=== PATIENT | male | born 1970 | race Two or more races ===

== ENCOUNTER → 2018-03-27 | Outpatient (CLI) | payer MEDICARE | END | disposition home or self-care (01) | LOC: CVU 12:38 | PROVIDERS: ATTEND Internal Medicine Cardiovascular Disease | DX: I08.0 Rheumatic disorders of both mitral and aortic valves (principal); E11.9 Type 2 diabetes mellitus without complications; I25.10 Atherosclerotic heart disease of native coronary artery without angina pectoris; E78.5 Hyperlipidemia, unspecified; M25.871 Other specified joint disorders, right ankle and foot; M25.872 Other specified joint disorders, left ankle and foot; F17.200 Nicotine dependence, unspecified, uncomplicated | CPT/HCPCS: 93306; 93922 ==

== ENCOUNTER → 2019-04-19 | Outpatient (CLI) | payer MEDICARE | END | disposition home or self-care (01) | LOC: CVU 14:54 | PROVIDERS: ATTEND Internal Medicine Cardiovascular Disease | DX: I65.23 Occlusion and stenosis of bilateral carotid arteries (principal); I25.10 Atherosclerotic heart disease of native coronary artery without angina pectoris; E78.5 Hyperlipidemia, unspecified; E11.9 Type 2 diabetes mellitus without complications; F17.200 Nicotine dependence, unspecified, uncomplicated | CPT/HCPCS: 93880 ==

== ENCOUNTER 2019-05-21 07:07 | Outpatient (CLI) | payer MEDICARE | END 2019-05-21 23:59 | disposition home or self-care (01) | LOC: CVU 07:07 → CFH 23:59 | PROVIDERS: ATTEND Nurse Practitioner Family | DX: I08.2 Rheumatic disorders of both aortic and tricuspid valves (principal); I25.89 Other forms of chronic ischemic heart disease; I25.10 Atherosclerotic heart disease of native coronary artery without angina pectoris; E11.9 Type 2 diabetes mellitus without complications; F17.200 Nicotine dependence, unspecified, uncomplicated | CPT/HCPCS: 78452; 93017; 93306; A9502; J2785 ==

== ENCOUNTER 2021-06-02 09:32 | Inpatient (IN) | payer MEDICARE ==
[~2021-06-02] VITALS: Ht 185.4 cm; Wt 89.5 kg
[2021-06-02] MEDS ORDERED: SODIUM CHLORIDE 0.9% 1,000ML IVBOLUS ONE (10:30)
[2021-06-02 10:41] LABS: BASOPHILS % (AUTO) 0 % (0-1); EOSINOPHILS % (AUTO) 0 % (1-7); LYMPHOCYTES % (AUTO) 27 % (22-44); MEAN CORPUSCULAR HEMOGLOBIN 29.8 pg (27.5-34.5); MEAN CORPUSCULAR HGB CONC 34.6 g/dL (33.2-36.2); MONOCYTES % (AUTO) 18 % (2-9); NEUTROPHILS % (AUTO) 55 % (42-75); PLATELET COUNT 112 x10^3/uL (130-400); RED BLOOD COUNT 4.88 x10^6/uL (4.38-5.82); RED CELL DISTRIBUTION WIDTH 13.7 % (9.4-14.8)
[2021-06-02 10:51] LABS: ALANINE AMINOTRANSFERASE 31 U/L (12-78); ALBUMIN 3.5 g/dL (3.4-5.0); ANION GAP 14 mmol/L (5-15); CALCIUM 8.6 mg/dL (8.5-10.1); CHLORIDE 104 mmol/L (98-107); CREATININE 2.12 mg/dL (0.7-1.3)
[2021-06-02 10:53] LABS: ALKALINE PHOSPHATASE 41 U/L (45-117); TOTAL PROTEIN 7.1 g/dL (6.4-8.2)
--- NOTE | 2021-06-02 10:53 | NUR ---
P STATES TO THIS RN HE FEELS LIKE HIS THROAT IS BURNING AND HE CAN'T CATCH HIS BREATH. MD MADE AWARE. LUNG SOUND REASSESSED AND ARE FOUND CLEAR. O2 SAT at 100% room air
[2021-06-02] MEDS ORDERED: LACTATED RINGERS 1,000 ML IVBOLUS ONE (11:00)
--- NOTE | 2021-06-02 11:41 | NUR ---
per admitting hold paul
[2021-06-02] MEDS ORDERED: ACETAMINOPHEN 325 MG TABLET PO PRN (12:00)
[2021-06-02] MEDS ORDERED: DEXTROSE 4 GM TAB.CHEW PO PRN (12:00)
[2021-06-02] MEDS ORDERED: THIAMINE 100MG TABLET PO ONE (12:00)
[2021-06-02] MEDS ORDERED: PROMETHAZINE 25 MG/ML, 1ML IM PRN (12:00)
[2021-06-02] MEDS ORDERED: CEFTRIAXONE 1,000 MG in DEXTROSE 5% 50 ML IVPB ONE (12:00)
[2021-06-02] MEDS ORDERED: DOCUSATE 100 MG CAPSULE PO PRN (12:00)
[2021-06-02] MEDS ORDERED: HYDROcodone/APAP 5/325 TABLET PO PRN (12:00)
[2021-06-02] MEDS ORDERED: VANCOMYCIN 2,100 MG in SODIUM CHLORIDE 0.9% 500 ML IV ONE (12:00)
[2021-06-02] MEDS ORDERED: GLUCAGON 1 MG IM PRN (12:00)
[2021-06-02] MEDS ORDERED: VANCOMYCIN PER PHARMACY MC ONE (12:00)
[2021-06-02] MEDS ORDERED: ENALAPRILAT 1.25 MG/ML, 2ML IVPush PRN (12:00)
[2021-06-02] MEDS ORDERED: GABAPENTIN 300 MG CAPSULE PO PRN (12:00)
[2021-06-02] MEDS ORDERED: DEXTROSE 50%, 50ML SYRINGE IVPush PRN (12:00)
[2021-06-02] MEDS ORDERED: ONDANSETRON ODT 4 MG PO PRN (12:00)
[2021-06-02] MEDS: CHOLECALCIFEROL 1,000 UNIT TABLET PO SCH (12:00)
[2021-06-02] MEDS ORDERED: METHOCARBAMOL 500 MG TABLET PO PRN (12:00)
[2021-06-02] MEDS ORDERED: morphine SULFATE 10 MG/ML, 1ML IVPush PRN (12:00)
[2021-06-02] MEDS ORDERED: ONDANSETRON 2MG/ML, 2ML IVPush PRN (12:00)
[2021-06-02] MEDS ORDERED: DOXEPIN 10 MG CAPSULE PO PRN (12:30)
[2021-06-02] MEDS ORDERED: CALCIUM CARBONATE 500 MG TAB.CHEW PO PRN (12:30)
[2021-06-02 12:42] VITALS: BP 164/114
[2021-06-02] MEDS: AZITHROMYCIN 500 MG in SODIUM CHLORIDE 0.9% 250 ML IV SCH (13:40)
[2021-06-02] MEDS: HEPARIN 5,000 UNITS/ML, 1ML SQ SCH ×2 (13:40→22:09)
[2021-06-02] MEDS: DEXAMETHASONE 4 MG/ML, 1ML IVPush SCH (14:06)
[2021-06-02] MEDS: INSULIN LISPRO 100 UNITS/ML, PEN SQ-INSULIN SCH ×2 (16:00→22:10)
[2021-06-02] MEDS: GABAPENTIN 300 MG CAPSULE PO SCH ×2 (17:24→22:11)
[2021-06-02] MEDS: GlyBURIDE 5 MG TABLET PO SCH (17:24)
[2021-06-02] MEDS: METOPROLOL TARTRATE 25 MG TAB PO SCH (17:24)
[2021-06-02] MEDS: ASCORBIC ACID 500 MG TABLET PO SCH (17:25)
[2021-06-02 17:58] LABS: MICROSCOPIC NOT IND
[2021-06-02 18:57] VITALS: BP 169/101
[2021-06-02 19:20] VITALS: BP 144/101
[2021-06-02 22:08] VITALS: BP 167/76
[2021-06-02] MEDS: INSULIN GLARGINE 100 UNITS/ML, PEN SQ-INSULIN SCH (22:10)
[2021-06-02] MEDS: mycophenOLATE SODIUM 360MG DR PO SCH (22:10)
[2021-06-02] MEDS: ATORVASTATIN 40 MG TABLET PO SCH (22:11)
[2021-06-02] MEDS: TACROLIMUS 1 MG CAPSULE PO SCH (22:11)
[2021-06-02] MEDS: OMEGA-3/FISH OIL CAPSULE PO SCH (22:11)
[2021-06-02] MEDS: SODIUM CHLORIDE FLUSH 10ML SYR IVF SCH (22:15)
[2021-06-03 01:00] VITALS: BP 159/88
[2021-06-03] MEDS: TEMAZEPAM 15 MG CAPSULE PO PRN (01:21)
[2021-06-03 06:13] VITALS: BP 166/113
[2021-06-03] MEDS: ASPIRIN 81 MG TABLET EC PO SCH (06:15)
[2021-06-03] MEDS: HEPARIN 5,000 UNITS/ML, 1ML SQ SCH ×3 (06:15→21:19)
[2021-06-03] MEDS: METOPROLOL TARTRATE 25 MG TAB PO SCH ×2 (06:15→17:22)
[2021-06-03 06:39] LABS: ANION GAP 9 mmol/L (5-15); CHLORIDE 110 mmol/L (98-107); CREATININE 1.65 mg/dL (0.7-1.3)
[2021-06-03] MEDS: INSULIN LISPRO 100 UNITS/ML, PEN SQ-INSULIN SCH ×5 (07:00→21:18)
[2021-06-03 07:46] LABS: MEAN CORPUSCULAR HEMOGLOBIN 29.3 pg (27.5-34.5); MEAN CORPUSCULAR HGB CONC 34.1 g/dL (33.2-36.2); PLATELET COUNT 126 x10^3/uL (130-400); RED BLOOD COUNT 4.43 x10^6/uL (4.38-5.82); RED CELL DISTRIBUTION WIDTH 13.6 % (9.4-14.8)
[2021-06-03] MEDS: OMEGA-3/FISH OIL CAPSULE PO SCH ×2 (08:02→21:19)
[2021-06-03] MEDS: GlyBURIDE 5 MG TABLET PO SCH ×2 (08:02→16:22)
[2021-06-03] MEDS: GABAPENTIN 300 MG CAPSULE PO SCH ×3 (08:02→21:21)
[2021-06-03] MEDS: ZINC SULFATE 220 MG CAPSULE PO SCH (08:03)
[2021-06-03] MEDS: ASCORBIC ACID 500 MG TABLET PO SCH ×2 (08:03→16:22)
[2021-06-03] MEDS: TACROLIMUS 1 MG CAPSULE PO SCH ×2 (08:03→21:19)
[2021-06-03] MEDS: mycophenOLATE SODIUM 360MG DR PO SCH ×2 (08:03→21:19)
[2021-06-03] MEDS: CLOPIDOGREL 75 MG TABLET PO SCH (08:03)
[2021-06-03] MEDS: FENOFIBRATE 145 MG TABLET PO SCH (08:03)
[2021-06-03] MEDS: LISINOPRIL 20 MG TABLET PO SCH (08:04)
[2021-06-03] MEDS: DEXAMETHASONE 4 MG/ML, 1ML IVPush SCH (08:04)
[2021-06-03] MEDS: SODIUM CHLORIDE FLUSH 10ML SYR IVF SCH ×2 (08:05→21:22)
[2021-06-03] MEDS: CHOLECALCIFEROL 1,000 UNIT TABLET PO SCH (08:05)
[2021-06-03 08:26] LABS: SEG#(MANUAL) 0.65 x10^3/uL (1.8-6.8); SEGS% (MANUAL) 43 % (42-75)
[2021-06-03 08:28] LABS: BAND#(MANUAL) 0.02 x10^3/uL; BANDS%(MANUAL) 1 % (0-7); LYMPH#(MANUAL) 0.51 x10^3/uL (1-3.4); LYMPHS% (MANUAL) 34 % (22-44); MONOS#(MANUAL) 0.33 x10^3/uL (0.3-2.7); MONOS% (MANUAL) 22 % (2-9)
[2021-06-03 08:29] LABS: <PLATELET ESTIMATE> DECREASED; <PLT MORPHOLOGY> NORMAL PLT MORPH; <RBC MORPHOLOGY> NORMAL
[2021-06-03 08:44] VITALS: BP 145/104
[2021-06-03] MEDS: LABETALOL 5MG/ML, 20ML IVPush PRN (09:51)
[2021-06-03] MEDS: CEFTRIAXONE 1,000 MG in DEXTROSE 5% 50 ML IVPB SCH (12:25)
[2021-06-03 12:28] VITALS: BP 151/97
[2021-06-03] MEDS: AZITHROMYCIN 500 MG in SODIUM CHLORIDE 0.9% 250 ML IV SCH (13:21)
[2021-06-03 17:22] VITALS: BP 138/81
[2021-06-03 19:37] VITALS: BP 156/96
[2021-06-03] MEDS: INSULIN GLARGINE 100 UNITS/ML, PEN SQ-INSULIN SCH (21:18)
[2021-06-03] MEDS: ATORVASTATIN 40 MG TABLET PO SCH (21:19)
[2021-06-04 00:33] VITALS: BP 159/95
[2021-06-04] MEDS: TEMAZEPAM 15 MG CAPSULE PO PRN (00:35)
[2021-06-04 05:21] VITALS: BP 166/117
[2021-06-04] MEDS: METOPROLOL TARTRATE 25 MG TAB PO SCH (05:24)
[2021-06-04] MEDS: ASPIRIN 81 MG TABLET EC PO SCH (05:24)
[2021-06-04] MEDS: HEPARIN 5,000 UNITS/ML, 1ML SQ SCH ×2 (05:24→14:18)
[2021-06-04 07:36] VITALS: BP 159/114
[2021-06-04 09:03] VITALS: BP 156/96
[2021-06-04] MEDS: INSULIN LISPRO 100 UNITS/ML, PEN SQ-INSULIN SCH ×2 (09:27→12:17)
[2021-06-04] MEDS: CLOPIDOGREL 75 MG TABLET PO SCH (10:13)
[2021-06-04] MEDS: CHOLECALCIFEROL 1,000 UNIT TABLET PO SCH (10:13)
[2021-06-04] MEDS: LISINOPRIL 20 MG TABLET PO SCH (10:13)
[2021-06-04] MEDS: mycophenOLATE SODIUM 360MG DR PO SCH (10:13)
[2021-06-04] MEDS: OMEGA-3/FISH OIL CAPSULE PO SCH (10:13)
[2021-06-04] MEDS: TACROLIMUS 1 MG CAPSULE PO SCH (10:14)
[2021-06-04] MEDS: ASCORBIC ACID 500 MG TABLET PO SCH (10:14)
[2021-06-04] MEDS: ZINC SULFATE 220 MG CAPSULE PO SCH (10:14)
[2021-06-04] MEDS: GABAPENTIN 300 MG CAPSULE PO SCH (10:14)
[2021-06-04] MEDS: FENOFIBRATE 145 MG TABLET PO SCH (10:14)
[2021-06-04] MEDS: SODIUM CHLORIDE FLUSH 10ML SYR IVF SCH (10:15)
[2021-06-04] MEDS: DEXAMETHASONE 4 MG/ML, 1ML IVPush SCH (10:15)
[2021-06-04] MEDS: GlyBURIDE 5 MG TABLET PO SCH (10:37)
[2021-06-04] MEDS ORDERED: INSU100I11 SQ-INSULIN (12:11)
[2021-06-04] MEDS ORDERED: OMEG1CAP6 PO (12:11)
[2021-06-04] MEDS ORDERED: CHOL10003 PO ×2 (12:11)
[2021-06-04] MEDS: CEFTRIAXONE 1,000 MG in DEXTROSE 5% 50 ML IVPB SCH (12:11)
[2021-06-04] MEDS ORDERED: INSU100I13 SQ-INSULIN (12:11)
[2021-06-04] MEDS ORDERED: AZIT250T PO ×2 (12:11)
[2021-06-04] MEDS ORDERED: CALC200T24 PO (12:11)
[2021-06-04] MEDS ORDERED: LISI-170 PO (12:11)
[2021-06-04] MEDS ORDERED: FENO145T19 PO (12:11)
[2021-06-04] MEDS ORDERED: ASPI81TA45 PO (12:11)
[2021-06-04] MEDS ORDERED: CLOP75TA PO (12:11)
[2021-06-04] MEDS ORDERED: GABA300C PO (12:11)
[2021-06-04] MEDS ORDERED: ZINC220C8 PO (12:11)
[2021-06-04] MEDS ORDERED: ATOR40TA78 PO (12:11)
[2021-06-04] MEDS ORDERED: ASCO500T9 PO ×2 (12:11)
[2021-06-04] MEDS ORDERED: GLYB5TAB3 PO ×2 (12:11)
[2021-06-04] MEDS ORDERED: DOXE10CA PO (12:11)
[2021-06-04] MEDS ORDERED: MYCO360T PO (12:11)
[2021-06-04] MEDS ORDERED: CEFD300C37 PO (12:11)
[2021-06-04] MEDS ORDERED: METO25TA35 PO (12:11)
[2021-06-04] MEDS ORDERED: TACR1CAP5 PO (12:11)
[2021-06-04] MEDS: AZITHROMYCIN 500 MG in SODIUM CHLORIDE 0.9% 250 ML IV SCH (12:17)
[2021-06-04 14:27] VITALS: BP 181/132
[2021-06-04] MEDS: LABETALOL 5MG/ML, 20ML IVPush PRN (14:40)
== END 2021-06-04 15:10 | disposition home or self-care (01) | DRG 871 ==
LOC: SUATTDRO 11:22 → ED 11:52 → 3N 12:22
PROVIDERS: ADMIT Hospitalist; ATTEND Family Medicine
DX: A41.9 Sepsis, unspecified organism (principal); U07.1 COVID-19; J12.82 Pneumonia due to coronavirus disease 2019; N17.0 Acute kidney failure with tubular necrosis; T86.19 Other complication of kidney transplant; E11.22 Type 2 diabetes mellitus with diabetic chronic kidney disease; E11.42 Type 2 diabetes mellitus with diabetic polyneuropathy; H91.90 Unspecified hearing loss, unspecified ear; I12.9 Hypertensive chronic kidney disease with stage 1 through stage 4 chronic kidney disease, or unspecified chronic kidney disease; I25.10 Atherosclerotic heart disease of native coronary artery without angina pectoris; K52.9 Noninfective gastroenteritis and colitis, unspecified; N18.30 Chronic kidney disease, stage 3 unspecified; Y83.0 Surgical operation with transplant of whole organ as the cause of abnormal reaction of the patient, or of later complication, without mention of misadventure at the time of the procedure; Z79.4 Long term (current) use of insulin; Z79.82 Long term (current) use of aspirin; Z79.02 Long term (current) use of antithrombotics/antiplatelets; Z79.899 Other long term (current) drug therapy; Z95.5 Presence of coronary angioplasty implant and graft; Y83.8 Other surgical procedures as the cause of abnormal reaction of the patient, or of later complication, without mention of misadventure at the time of the procedure
CPT/HCPCS: 36415; 71045; 80048; 80053; 81003; 82962; 83605; 84145; 85025; 87040; 93005; 96361; 96374; 96375; G0378; J0456; J0696; J1100; J1644; J2405; J7507; J7518; J1815; J7030; J7050; J7120

== ENCOUNTER 2021-06-06 15:36 | Inpatient (IN) | payer MEDICARE ==
[~2021-06-06] VITALS: Ht 185.4 cm; Wt 86.5 kg
[~2021-06-06 15:36] MED LIST: ASCO500T9 PO; ASPI81TA45 PO; ATOR40TA78 PO; AZIT250T PO; CALC200T24 PO; CEFD300C37 PO; CHOL10003 PO; CLOP75TA PO; DOXE10CA PO; FENO145T19 PO; GABA300C PO; GLYB5TAB3 PO; INSU100I11 SQ-INSULIN; INSU100I13 SQ-INSULIN; LISI-170 PO; METO25TA35 PO; MYCO360T PO; OMEG1CAP6 PO; TACR1CAP5 PO; ZINC220C8 PO
--- NOTE | 2021-06-06 16:23 | NUR ---
[employer]: EKG COMPLETED IN TRIAGE.
[2021-06-06 16:54] LABS: BASOPHILS % (AUTO) 0 % (0-1); EOSINOPHILS % (AUTO) 0 % (1-7); LYMPHOCYTES % (AUTO) 11 % (22-44); MEAN CORPUSCULAR HEMOGLOBIN 29.7 pg (27.5-34.5); MEAN CORPUSCULAR HGB CONC 34.4 g/dL (33.2-36.2); MEAN PLATELET VOLUME 9.4 fL (7.4-10.4); MONOCYTES % (AUTO) 13 % (2-9); NEUTROPHILS % (AUTO) 75 % (42-75); PLATELET COUNT 170 x10^3/uL (130-400); RED BLOOD COUNT 4.73 x10^6/uL (4.38-5.82); RED CELL DISTRIBUTION WIDTH 13.9 % (9.4-14.8)
[2021-06-06 17:06] LABS: ALBUMIN 2.9 g/dL (3.4-5.0); ANION GAP 8 mmol/L (5-15); CALCIUM 8.7 mg/dL (8.5-10.1); CHLORIDE 104 mmol/L (98-107)
[2021-06-06 17:09] LABS: ALANINE AMINOTRANSFERASE 49 U/L (12-78); ALKALINE PHOSPHATASE 41 U/L (45-117); BILIRUBIN,TOTAL 0.8 mg/dL (0.2-1.0); CREATININE 1.29 mg/dL (0.7-1.3); TOTAL PROTEIN 7.1 g/dL (6.4-8.2)
--- NOTE | 2021-06-06 18:11 | NUR ---
VSS. patient assisted to bedside commode. call light within reach
[2021-06-06] MEDS ORDERED: SODIUM CHLORIDE FLUSH 10ML SYR IVF PRN (18:30)
[2021-06-06] MEDS ORDERED: OXYcodone IR 5MG TABLET PO PRN (19:00)
[2021-06-06] MEDS ORDERED: PHARMACY MAY ADJ FOR RENAL FX MC PRN (19:00)
[2021-06-06] MEDS ORDERED: ONDANSETRON 2MG/ML, 2ML IVPush PRN (19:00)
[2021-06-06] MEDS ORDERED: ENOXAPARIN 40 MG/0.4 ML SQ SCH (20:00)
[2021-06-06 21:31] VITALS: BP 170/119
[2021-06-06] MEDS: MELATONIN 5 MG TABLET PO PRN (21:56)
[2021-06-06] MEDS: ACETAMINOPHEN 325 MG TABLET PO PRN (21:56)
[2021-06-06] MEDS: PIPERACILLIN/TAZO 3.375 GM in DEXTROSE 5% 50 ML IVPB SCH (21:56)
[2021-06-07] VITALS (7 sets, daily range): BP systolic 126–171; BP diastolic 79–125
[2021-06-07] MEDS: PIPERACILLIN/TAZO 3.375 GM in DEXTROSE 5% 50 ML IVPB SCH ×4 (04:13→22:52)
[2021-06-07] MEDS: METOPROLOL TARTRATE 25 MG TAB PO SCH ×2 (06:46→17:05)
[2021-06-07] MEDS: ASPIRIN 81 MG TABLET EC PO SCH (06:46)
[2021-06-07 06:51] LABS: BASOPHILS % (AUTO) 0 % (0-1); EOSINOPHILS % (AUTO) 0 % (1-7); LYMPHOCYTES % (AUTO) 17 % (22-44); MEAN CORPUSCULAR HEMOGLOBIN 29.8 pg (27.5-34.5); MEAN CORPUSCULAR HGB CONC 34.9 g/dL (33.2-36.2); MEAN PLATELET VOLUME 9.2 fL (7.4-10.4); MONOCYTES % (AUTO) 17 % (2-9); NEUTROPHILS % (AUTO) 66 % (42-75); PLATELET COUNT 160 x10^3/uL (130-400); RED BLOOD COUNT 4.45 x10^6/uL (4.38-5.82); RED CELL DISTRIBUTION WIDTH 13.6 % (9.4-14.8)
[2021-06-07 06:57] LABS: ANION GAP 8 mmol/L (5-15); CALCIUM 8.3 mg/dL (8.5-10.1); CHLORIDE 105 mmol/L (98-107); CREATININE 1.25 mg/dL (0.7-1.3)
[2021-06-07] MEDS: INSULIN LISPRO 100 UNITS/ML, PEN SQ-INSULIN SCH ×4 (07:00→21:00)
[2021-06-07 07:33] LABS: C-REACTIVE PROTEIN, QUANT 9.4 mg/dL (0.02-0.49)
[2021-06-07] MEDS ORDERED: DEXTROSE 4 GM TAB.CHEW PO PRN (08:30)
[2021-06-07] MEDS ORDERED: DEXTROSE 50%, 50ML SYRINGE IVPush PRN (08:30)
[2021-06-07] MEDS ORDERED: GLUCAGON 1 MG IM PRN (08:30)
[2021-06-07] MEDS: SODIUM CHLORIDE FLUSH 10ML SYR IVF SCH ×2 (08:58→20:34)
[2021-06-07] MEDS: ASCORBIC ACID 500 MG TABLET PO SCH ×2 (08:58→17:04)
[2021-06-07] MEDS: ZINC SULFATE 220 MG CAPSULE PO SCH (08:58)
[2021-06-07] MEDS: GABAPENTIN 300 MG CAPSULE PO SCH ×3 (08:58→20:33)
[2021-06-07] MEDS: THIAMINE 100MG TABLET PO SCH (08:59)
[2021-06-07] MEDS: CLOPIDOGREL 75 MG TABLET PO SCH (08:59)
[2021-06-07] MEDS: TACROLIMUS 1 MG CAPSULE PO SCH (08:59)
[2021-06-07] MEDS: CHOLECALCIFEROL 1,000 UNIT TABLET PO SCH (08:59)
[2021-06-07] MEDS: FENOFIBRATE 145 MG TABLET PO SCH (08:59)
[2021-06-07] MEDS ORDERED: LISINOPRIL 20 MG TABLET PO SCH (09:00)
[2021-06-07] MEDS: DEXAMETHASONE 4 MG/ML, 1ML IVPush SCH (10:29)
[2021-06-07] MEDS: mycophenOLATE SODIUM 360MG DR PO SCH ×2 (10:47→20:33)
[2021-06-07 11:47] LABS: MICROSCOPIC AUTO
[2021-06-07 12:30] LABS: CLOSTRIDIUM DIFFICILE ANTIGEN NEGATIVE; CLOSTRIDIUM DIFFICILE TOXIN NEGATIVE (Negative)
[2021-06-07] MEDS: ENOXAPARIN 60 MG/0.6 ML SQ SCH (20:32)
[2021-06-07] MEDS: ATORVASTATIN 40 MG TABLET PO SCH (20:33)
[2021-06-07] MEDS: LISINOPRIL 20 MG TABLET PO SCH (20:33)
[2021-06-07] MEDS: ACETAMINOPHEN 325 MG TABLET PO PRN (21:00)
[2021-06-07] MEDS: MELATONIN 5 MG TABLET PO PRN (21:00)
[2021-06-08] MEDS: PIPERACILLIN/TAZO 3.375 GM in DEXTROSE 5% 50 ML IVPB SCH ×4 (04:40→21:35)
[2021-06-08] MEDS: METOPROLOL TARTRATE 25 MG TAB PO SCH ×2 (06:33→17:01)
[2021-06-08] MEDS: ASPIRIN 81 MG TABLET EC PO SCH (06:33)
[2021-06-08 06:45] LABS: BASOPHILS % (AUTO) 0 % (0-1); EOSINOPHILS % (AUTO) 0 % (1-7); LYMPHOCYTES % (AUTO) 24 % (22-44); MEAN CORPUSCULAR HEMOGLOBIN 29.4 pg (27.5-34.5); MEAN CORPUSCULAR HGB CONC 34.5 g/dL (33.2-36.2); MEAN PLATELET VOLUME 9.8 fL (7.4-10.4); MONOCYTES % (AUTO) 22 % (2-9); NEUTROPHILS % (AUTO) 54 % (42-75); PLATELET COUNT 196 x10^3/uL (130-400); RED CELL DISTRIBUTION WIDTH 13.8 % (9.4-14.8)
[2021-06-08 06:56] LABS: ANION GAP 9 mmol/L (5-15); CALCIUM 8.4 mg/dL (8.5-10.1); CHLORIDE 105 mmol/L (98-107)
[2021-06-08 06:58] LABS: CREATININE 1.54 mg/dL (0.7-1.3)
[2021-06-08] MEDS ORDERED: SODIUM CHLORIDE 0.9% 1,000ML IVBOLUS ONE (07:30)
[2021-06-08] MEDS ORDERED: INSULIN GLARGINE 100 UNITS/ML, PEN SQ-INSULIN SCH (09:00)
[2021-06-08] MEDS: CHOLECALCIFEROL 1,000 UNIT TABLET PO SCH (09:00)
[2021-06-08 09:58] VITALS: BP 106/67
[2021-06-08] MEDS: THIAMINE 100MG TABLET PO SCH (10:02)
[2021-06-08] MEDS: mycophenOLATE SODIUM 360MG DR PO SCH (10:02)
[2021-06-08] MEDS: ZINC SULFATE 220 MG CAPSULE PO SCH (10:02)
[2021-06-08] MEDS: ASCORBIC ACID 500 MG TABLET PO SCH ×2 (10:02→15:59)
[2021-06-08] MEDS: LISINOPRIL 20 MG TABLET PO SCH ×2 (10:02→21:34)
[2021-06-08] MEDS: FENOFIBRATE 145 MG TABLET PO SCH (10:02)
[2021-06-08] MEDS: GABAPENTIN 300 MG CAPSULE PO SCH ×3 (10:02→21:35)
[2021-06-08] MEDS: CLOPIDOGREL 75 MG TABLET PO SCH (10:02)
[2021-06-08] MEDS: TACROLIMUS 1 MG CAPSULE PO SCH (10:03)
[2021-06-08] MEDS: SODIUM CHLORIDE FLUSH 10ML SYR IVF SCH ×2 (10:03→21:35)
[2021-06-08] MEDS: INSULIN LISPRO 100 UNITS/ML, PEN SQ-INSULIN SCH ×4 (10:04→21:51)
[2021-06-08] MEDS: DEXAMETHASONE 4 MG/ML, 1ML IVPush SCH (11:33)
[2021-06-08] MEDS ORDERED: SODIUM BICARBONATE 8.4% 75 MEQ in SODIUM CHLORIDE 0.45% 1,000 ML IV SCH (12:00)
[2021-06-08 13:04] LABS: MICROSCOPIC NOT IND
[2021-06-08 13:08] LABS: POTASSIUM,URINE RANDOM 65 mmol/L; SODIUM,URINE RANDOM 31 mmol/L
[2021-06-08 13:09] LABS: CHLORIDE,URINE RANDOM < 10 mmol/L
[2021-06-08 14:53] VITALS: BP 140/83
[2021-06-08] MEDS: SODIUM BICARBONATE 8.4% 75 MEQ in SODIUM CHLORIDE 0.45% 1,000 ML IV SCH (17:01)
[2021-06-08 21:07] VITALS: BP 117/76
[2021-06-08] MEDS: ENOXAPARIN 60 MG/0.6 ML SQ SCH (21:34)
[2021-06-08] MEDS: ATORVASTATIN 40 MG TABLET PO SCH (21:34)
[2021-06-08] MEDS: INSULIN GLARGINE 100 UNITS/ML, PEN SQ-INSULIN SCH (21:51)
[2021-06-09] MEDS: SODIUM BICARBONATE 8.4% 75 MEQ in SODIUM CHLORIDE 0.45% 1,000 ML IV SCH ×2 (02:40→16:16)
[2021-06-09 02:42] VITALS: BP 113/54
[2021-06-09] MEDS: PIPERACILLIN/TAZO 3.375 GM in DEXTROSE 5% 50 ML IVPB SCH (04:56)
[2021-06-09] MEDS: ASPIRIN 81 MG TABLET EC PO SCH (04:56)
[2021-06-09] MEDS: METOPROLOL TARTRATE 25 MG TAB PO SCH ×2 (04:57→18:08)
[2021-06-09 06:55] LABS: BASOPHILS % (AUTO) 0 % (0-1); EOSINOPHILS % (AUTO) 1 % (1-7); LYMPHOCYTES % (AUTO) 21 % (22-44); MEAN CORPUSCULAR HEMOGLOBIN 29.4 pg (27.5-34.5); MEAN CORPUSCULAR HGB CONC 34.6 g/dL (33.2-36.2); MEAN PLATELET VOLUME 9.1 fL (7.4-10.4); MONOCYTES % (AUTO) 15 % (2-9); NEUTROPHILS % (AUTO) 64 % (42-75); PLATELET COUNT 216 x10^3/uL (130-400); RED BLOOD COUNT 4.14 x10^6/uL (4.38-5.82); RED CELL DISTRIBUTION WIDTH 13.6 % (9.4-14.8)
[2021-06-09 07:06] LABS: ALBUMIN 2.5 g/dL (3.4-5.0); ANION GAP 8 mmol/L (5-15); CHLORIDE 110 mmol/L (98-107)
[2021-06-09 07:11] LABS: % IRON SATURATION 31 % (20-55); ALANINE AMINOTRANSFERASE 28 U/L (12-78); ALKALINE PHOSPHATASE 46 U/L (45-117); BILIRUBIN,TOTAL 0.6 mg/dL (0.2-1.0); CREATINE KINASE, TOTAL 52 U/L (39-308); CREATININE 1.28 mg/dL (0.7-1.3); IRON LEVEL 58 mcg/dL (65-175); TOTAL IRON BINDING CAPACITY 187 mcg/dL (250-450)
[2021-06-09] MEDS: DEXAMETHASONE 4 MG/ML, 1ML IVPush SCH (08:11)
[2021-06-09] MEDS: GABAPENTIN 300 MG CAPSULE PO SCH ×3 (08:11→19:47)
[2021-06-09] MEDS: ZINC SULFATE 220 MG CAPSULE PO SCH (08:11)
[2021-06-09] MEDS: ASCORBIC ACID 500 MG TABLET PO SCH ×2 (08:11→15:48)
[2021-06-09] MEDS: TACROLIMUS 1 MG CAPSULE PO SCH (08:11)
[2021-06-09] MEDS: FENOFIBRATE 145 MG TABLET PO SCH (08:11)
[2021-06-09] MEDS: THIAMINE 100MG TABLET PO SCH (08:12)
[2021-06-09] MEDS: CLOPIDOGREL 75 MG TABLET PO SCH (08:12)
[2021-06-09] MEDS: SODIUM CHLORIDE FLUSH 10ML SYR IVF SCH ×2 (08:12→19:47)
[2021-06-09] MEDS: CHOLECALCIFEROL 1,000 UNIT TABLET PO SCH (08:12)
[2021-06-09] MEDS: LISINOPRIL 20 MG TABLET PO SCH ×2 (08:12→19:47)
[2021-06-09] MEDS: INSULIN LISPRO 100 UNITS/ML, PEN SQ-INSULIN SCH ×4 (08:14→20:07)
[2021-06-09] MEDS: INSULIN GLARGINE 100 UNITS/ML, PEN SQ-INSULIN SCH ×2 (08:15→20:07)
[2021-06-09 08:23] VITALS: BP 166/113
[2021-06-09] MEDS ORDERED: CALCIUM GLUCONATE 4.6 MEQ in SODIUM CHLORIDE 0.9% 100 ML IV ONE (08:30)
[2021-06-09] MEDS: CEFTRIAXONE 2 GM in DEXTROSE 5% 50 ML IVPB SCH (10:48)
[2021-06-09] MEDS: DOXYCYCLINE 100MG TABLET PO SCH ×2 (10:50→19:47)
[2021-06-09] MEDS: GUAIFENESIN ER 600 MG TABLET PO SCH ×2 (10:50→19:47)
[2021-06-09] MEDS: CALCIUM CARBONATE 500 MG TABLET PO SCH ×2 (11:33→19:47)
[2021-06-09 12:38] VITALS: BP 180/100
[2021-06-09] MEDS ORDERED: hydrALAzine 20 MG/ML, 1ML IV PRN (13:30)
[2021-06-09 14:06] VITALS: BP 148/94
[2021-06-09] MEDS: AMLODIPINE 5 MG TABLET PO SCH (14:07)
[2021-06-09 19:38] VITALS: BP 112/75
[2021-06-09] MEDS: ATORVASTATIN 40 MG TABLET PO SCH (19:47)
[2021-06-09] MEDS: ENOXAPARIN 60 MG/0.6 ML SQ SCH (19:48)
[2021-06-10 01:05] VITALS: BP 130/76
[2021-06-10] MEDS: METOPROLOL TARTRATE 25 MG TAB PO SCH (05:48)
[2021-06-10] MEDS: SODIUM BICARBONATE 8.4% 75 MEQ in SODIUM CHLORIDE 0.45% 1,000 ML IV SCH (05:48)
[2021-06-10] MEDS: ASPIRIN 81 MG TABLET EC PO SCH (05:48)
[2021-06-10 05:58] LABS: BASOPHILS % (AUTO) 0 % (0-1); EOSINOPHILS % (AUTO) 1 % (1-7); LYMPHOCYTES % (AUTO) 20 % (22-44); MEAN CORPUSCULAR HEMOGLOBIN 29.6 pg (27.5-34.5); MEAN CORPUSCULAR HGB CONC 34.9 g/dL (33.2-36.2); MEAN PLATELET VOLUME 9.1 fL (7.4-10.4); MONOCYTES % (AUTO) 13 % (2-9); NEUTROPHILS % (AUTO) 66 % (42-75); PLATELET COUNT 214 x10^3/uL (130-400); RED BLOOD COUNT 3.78 x10^6/uL (4.38-5.82); RED CELL DISTRIBUTION WIDTH 13.4 % (9.4-14.8)
[2021-06-10 06:00] LABS: ALBUMIN 2.2 g/dL (3.4-5.0); ANION GAP 6 mmol/L (5-15); CALCIUM 8.3 mg/dL (8.5-10.1); CHLORIDE 110 mmol/L (98-107); CREATININE 1.08 mg/dL (0.7-1.3)
[2021-06-10] MEDS: INSULIN LISPRO 100 UNITS/ML, PEN SQ-INSULIN SCH ×2 (07:00→11:24)
[2021-06-10 07:42] VITALS: BP 150/90
[2021-06-10] MEDS ORDERED: CEFD300C37 PO (08:36)
[2021-06-10] MEDS ORDERED: LISI-170 PO (08:36)
[2021-06-10] MEDS: INSULIN GLARGINE 100 UNITS/ML, PEN SQ-INSULIN SCH (09:00)
[2021-06-10] MEDS: TACROLIMUS 1 MG CAPSULE PO SCH (09:21)
[2021-06-10] MEDS: CALCIUM CARBONATE 500 MG TABLET PO SCH (09:21)
[2021-06-10] MEDS: DOXYCYCLINE 100MG TABLET PO SCH (09:21)
[2021-06-10] MEDS: GUAIFENESIN ER 600 MG TABLET PO SCH (09:21)
[2021-06-10] MEDS: DEXAMETHASONE 4 MG/ML, 1ML IVPush SCH (09:21)
[2021-06-10] MEDS: FENOFIBRATE 145 MG TABLET PO SCH (09:21)
[2021-06-10] MEDS: CHOLECALCIFEROL 1,000 UNIT TABLET PO SCH (09:21)
[2021-06-10] MEDS: THIAMINE 100MG TABLET PO SCH (09:21)
[2021-06-10] MEDS: ZINC SULFATE 220 MG CAPSULE PO SCH (09:21)
[2021-06-10] MEDS: GABAPENTIN 300 MG CAPSULE PO SCH (09:21)
[2021-06-10] MEDS: AMLODIPINE 5 MG TABLET PO SCH (09:22)
[2021-06-10] MEDS: SODIUM CHLORIDE FLUSH 10ML SYR IVF SCH (09:22)
[2021-06-10] MEDS: ASCORBIC ACID 500 MG TABLET PO SCH (09:22)
[2021-06-10] MEDS: LISINOPRIL 20 MG TABLET PO SCH (09:22)
[2021-06-10] MEDS: CLOPIDOGREL 75 MG TABLET PO SCH (09:22)
[2021-06-10] MEDS: CEFTRIAXONE 2 GM in DEXTROSE 5% 50 ML IVPB SCH (11:23)
== END 2021-06-10 15:00 | disposition home or self-care (01) | DRG 177 ==
LOC: ED 16:06 → EDIP 18:04 → 3N 19:27
PROVIDERS: ADMIT Hospitalist; ATTEND Hospitalist
DX: U07.1 COVID-19 (principal); A41.89 Other specified sepsis; J12.82 Pneumonia due to coronavirus disease 2019; E87.1 Hypo-osmolality and hyponatremia; E87.2 Acidosis; N17.9 Acute kidney failure, unspecified; T86.19 Other complication of kidney transplant; D84.9 Immunodeficiency, unspecified; Q87.81 Alport syndrome; Z94.0 Kidney transplant status; Z79.4 Long term (current) use of insulin; E11.22 Type 2 diabetes mellitus with diabetic chronic kidney disease; D64.9 Anemia, unspecified; E11.649 Type 2 diabetes mellitus with hypoglycemia without coma; E11.65 Type 2 diabetes mellitus with hyperglycemia; E78.5 Hyperlipidemia, unspecified; E86.9 Volume depletion, unspecified; E11.42 Type 2 diabetes mellitus with diabetic polyneuropathy; I25.10 Atherosclerotic heart disease of native coronary artery without angina pectoris; I34.0 Nonrheumatic mitral (valve) insufficiency; Y83.0 Surgical operation with transplant of whole organ as the cause of abnormal reaction of the patient, or of later complication, without mention of misadventure at the time of the procedure; Z78.9 Other specified health status; Z82.3 Family history of stroke; Z82.49 Family history of ischemic heart disease and other diseases of the circulatory system; Z83.3 Family history of diabetes mellitus; Z90.5 Acquired absence of kidney; Z98.61 Coronary angioplasty status; N18.2 Chronic kidney disease, stage 2 (mild); I12.9 Hypertensive chronic kidney disease with stage 1 through stage 4 chronic kidney disease, or unspecified chronic kidney disease
CPT/HCPCS: 36415; 71045; 74176; 80048; 80053; 80069; 80197; 81001; 81003; 82306; 82330; 82436; 82550; 82570; 82728; 82962; 83036; 83540; 83550; 83605; 83615; 83690; 83735; 83935; 83970; 84100; 84133; 84145; 84300; 84550; 85025; 85379; 86140; 87324; 93005; 96374; G0378; J0610; J0696; J1100; J1650; J2405; J2543; J7507; J7518; J0360; J1815; J7030